=== PATIENT | male | born 1960 | race Caucasian/White ===

== ENCOUNTER → 2023-02-21 | Outpatient (REF) | payer BC | LOC: M LAB REF 13:41 | PROVIDERS: ATTEND Physician Assistant Medical | DX: R11.0 Nausea (principal); R43.8 Other disturbances of smell and taste ==

== ENCOUNTER → 2023-03-13 | Outpatient (CLI) | payer BC | LOC: M RAD 10:10 | PROVIDERS: ATTEND Physician Assistant Medical | DX: R74.01 Elevation of levels of liver transaminase levels (principal); K76.89 Other specified diseases of liver ==

== ENCOUNTER → 2024-01-24 | Outpatient (CLI) | payer MEDICARE ==
[2024-01-28 12:33] LABS: PSA FREE 0.7 ng/mL; PSA TOTAL 6.1 ng/mL (< OR = 4.0)
== END ==
LOC: M PLALAB 13:37
PROVIDERS: ATTEND Nurse Practitioner Family
DX: R97.20 Elevated prostate specific antigen [PSA] (principal)

== ENCOUNTER → 2024-02-12 | Outpatient (CLI) | payer MEDICARE | LOC: M PLALAB 12:45 | PROVIDERS: ATTEND Nurse Practitioner Family | DX: R97.20 Elevated prostate specific antigen [PSA] (principal) ==

== ENCOUNTER → 2024-03-21 | Outpatient (REF) | payer MEDICARE | LOC: M SMT 10:25 | PROVIDERS: ATTEND Urology | DX: R97.20 Elevated prostate specific antigen [PSA] (principal); Z80.0 Family history of malignant neoplasm of digestive organs; F17.210 Nicotine dependence, cigarettes, uncomplicated ==